=== PATIENT | male | born 1945 | race Caucasian/White ===

== ENCOUNTER → 2016-07-14 | Outpatient (CLI) | payer MEDICARE, BC ==
--- NOTE | 2016-07-14 12:58 | CT ---
EXAMINATION TYPE: CT abdomen pelvis wo/w con DATE OF EXAM: 07/14/2016 12:14 PM COMPARISON: NONE HISTORY: Renal mass left kidney CT DLP: 1517.3 mGycm Automated exposure control for dose reduction was used. TECHNIQUE: Helical acquisition of images was performed from the lung bases through the pelvis pre- a nd postadministration of intravenous contrast, following oral contrast. CONTRAST: Performed with Oral Contrast and with IV Contrast, patient injected with 75 per order mL of Visipaque 320. FINDINGS: At the root of the aorta the diameter measures approximately 4.8 cm. LUNG BASES: No significant abnormality is appreciated. LIVER/GB: Cystic focus right lobe of the liver measures 11 mm axial image 28, similar cystic focus le ft lobe measures 12 mm, additional subcentimeter cystic foci present within the right lobe axial imag e 16, left lobe shows 12 mm focus lateral segment. Gallbladder is normal. PANCREAS: No significant abnormality is seen. SPLEEN: No significant abnormality is seen. ADRENALS: No significant abnormality is seen. KIDNEYS: There is a soft tissue mass at the upper pole of the left kidney measuring approximately 3 c m x 3.5 cm x 2.7 cm which shows heterogeneous enhancement. Cystic focus is present at the medial righ t renal cortex measuring 2.3 cm. The lower pole medially there is an indeterminate mixed low dense fo cus measuring approximately 14 mm which may be due to volume averaging. RETROPERITONEAL ADENOPATHY: None visualized REPRODUCTIVE ORGANS: Prostate is enlarged and shows some associated calcification. URINARY BLADDER: Suspect a small Hutch diverticulum on the left.. PELVIC ADENOPATHY: None visualized. OSSEOUS STRUCTURES: There is a scoliosis. Degenerative disc changes, facet arthropathy noted at the lower lumbar spine. Osteoarthritic changes noted within the hips. BOWEL: Extensive diverticular changes associated with the sigmoid colon. OTHER: No ascites. IMPRESSION: UPPER POLE LEFT RENAL MASS COULD REPRESENT RENAL CELL CARCINOMA. POSSIBLE VOLUME AVERAGING LOWER POLE LEFT KIDNEY RATHER THAN TRUE MASS. PROBABLE CYSTS WITHIN THE LIVER. DIVERTICULOSIS. SCOLIOSIS, DEGEN ERATIVE DISC DISEASE, FACET ARTHROPATHY.
== END | disposition home or self-care (01) ==
LOC: RADCTMAIN 09:56
PROVIDERS: ATTEND Urology
DX: N28.89 Other specified disorders of kidney and ureter (principal); K57.30 Diverticulosis of large intestine without perforation or abscess without bleeding
CPT/HCPCS: 74178; Q9967

== ENCOUNTER → 2016-07-30 | Outpatient (CLI) | payer MEDICARE, BC ==
[2016-07-30 10:13] LABS: Appearance,Urine Clear (Clear); Bilirubin,Urine Negative (Negative); Glucose,Urine (UA) Negative (Negative); Ketones,Urine Negative (Negative); Leukocyte Esterase,Urine Negative (Negative); Nitrite,Urine Negative (Negative); Protein,Urine Negative (Negative); UA Billing (MACRO vs. MICRO) CHEM; Urobilinogen,Urine <2.0 mg/dL (<2.0)
[2016-07-30 10:14] LABS: Basophils % (A) 1 %; CH 30.7; CHCM 33.3; Eosinophils # (A) 0.1 k/uL (0-0.7); Eosinophils % (A) 3 %; HCT 42.2 % (39.0-53.0); HDW 2.52; HGB 14.1 gm/dL (13.0-17.5); Luc # (Auto) 0.23; Luc % (Auto) 4; Lymphocytes # (A) 0.9 k/uL (1.0-4.8); Lymphocytes % (A) 17 %; MCHC 33.5 g/dL (31.0-37.0); MCV 92.7 fL (80.0-100.0); Monocytes # (A) 0.6 k/uL (0-1.0); Monocytes % (A) 10 %; Neutrophils # (A) 3.7 k/uL (1.3-7.7); Neutrophils % (A) 66 %; RBC 4.55 m/uL (4.30-5.90); RDW 13.4 % (11.5-15.5); WBC 5.6 k/uL (3.8-10.6); WBC (Perox) 5.77
--- NOTE | 2016-07-30 10:22 | XR ---
EXAMINATION TYPE: XR chest 2V DATE OF EXAM: 07/30/2016 10:15 AM COMPARISON: None TECHNIQUE: PA and lateral views submitted. HISTORY: Arrhythmia and shortness of breath FINDINGS: The lungs are clear and there is no pneumothorax, pleural effusion, or focal pneumonia. Hypertrophi c and degenerative change of the spine noted. IMPRESSION: 1. No acute process.
[2016-07-30 10:26] LABS: ALT 31 U/L (21-72); AST 21 U/L (17-59); Alkaline Phosphatase 67 U/L (38-126); Anion Gap 13 mmol/L; Blood Urea Nitrogen 33 mg/dL (9-20); Carbon Dioxide 27 mmol/L (22-30); Chloride 103 mmol/L (98-107); Glucose 74 mg/dL (74-99); Non-African American GFR(MDRD) 50 (>60 ml/min/1.73 sqM); Potassium 4.9 mmol/L (3.5-5.1); Sodium 143 mmol/L (137-145); Total Bilirubin 0.5 mg/dL (0.2-1.3); Total Protein 7.3 g/dL (6.3-8.2)
== END | disposition home or self-care (01) ==
LOC: LABPAT 09:33
PROVIDERS: ATTEND Urology
DX: Z01.818 Encounter for other preprocedural examination (principal); Z01.810 Encounter for preprocedural cardiovascular examination; C64.2 Malignant neoplasm of left kidney, except renal pelvis; E78.5 Hyperlipidemia, unspecified; I49.9 Cardiac arrhythmia, unspecified; R35.0 Frequency of micturition; R06.02 Shortness of breath
CPT/HCPCS: 36415; 71020; 80053; 81003; 85025; 86850; 86900; 86901; 93005

== ENCOUNTER 2016-08-06 05:54 | Inpatient (IN) | payer MEDICARE, BC ==
[2016-07-31 10:28] VITALS: BMI 27.2
[~2016-08-06 05:54] MED LIST: DEXAMETHASONE SOD PHOSPHATE 10 MG/ML 1 ML VIAL IV ONE; HYDROmorphone 1 MG/ML 1 ML SYRINGE IVP PRN; MIDAZOLAM 2 MG/2 ML VIAL IV PRN; ONDANSETRON 4 MG/2 ML VIAL IVP ONE; Pre Op ABX Message 1 EACH MISC MISCELLANE ONE
[2016-08-06] MEDS ORDERED: LIDOCAINE 1% 20 ML VIAL (10MG/ML) FOR IV START INTRADERMA ONE (06:45)
[2016-08-06] MEDS: fentaNYL (PF) 50 MCG/ML 2 ML AMP IV ONE ×2 (07:00→10:48)
[2016-08-06] MEDS: LACTATED RINGERS 1,000 ML IV SCH (07:37)
[2016-08-06] MEDS ORDERED: MIDAZOLAM 2 MG/2 ML VIAL ONE (07:39)
[2016-08-06] MEDS ORDERED: VECURONIUM 10 MG VIAL IV ONE (07:39)
[2016-08-06] MEDS ORDERED: SUCCINYLCHOLINE CHLORIDE 100 MG/5 ML SYR IV ONE (07:39)
[2016-08-06] MEDS ORDERED: PHENYLEPHRINE-0.9% NACL SYG 1 MG/10 ML SYRINGE ONE (07:39)
[2016-08-06] MEDS ORDERED: NEOSTIGMINE 1 MG/ML 10 ML VIAL ONE (07:39)
[2016-08-06] MEDS ORDERED: ALBUMIN HUMAN 5% 250 ML BOTTLE IVPB ONE (07:39)
[2016-08-06] MEDS ORDERED: GLYCOPYRROLATE 0.2 MG/ML 2 ML VIAL ONE (07:39)
[2016-08-06] MEDS ORDERED: METHOHEXITAL SODIUM 500 MG VIAL ONE (07:39)
[2016-08-06] MEDS ORDERED: fentaNYL (PF) 50 MCG/ML 2 ML AMP ONE (07:39)
[2016-08-06] MEDS ORDERED: ePHEDrine 50 MG/ML 1 ML AMP ONE (07:39)
[2016-08-06] MEDS ORDERED: NALOXONE 0.4 MG/ML 1 ML VIAL IV PRN (07:58)
[2016-08-06] MEDS ORDERED: diphenhydrAMINE 50 MG/ML 1 ML VIAL IVP PRN (07:58)
[2016-08-06] MEDS ORDERED: LACTATED RINGERS 1,000 ML IV ONE ×3 (08:12→10:10)
[2016-08-06] MEDS ORDERED: GELATIN SPONGE,ABSORB (LARGE) 1 EACH SPONGE TOPICAL ONE (09:31)
[2016-08-06 10:04] LABS: CH 30.9; HCT 26.7 % (39.0-53.0); HDW 2.53; MCH 31.6 pg (25.0-35.0); MCHC 34.6 g/dL (31.0-37.0); MCV 91.3 fL (80.0-100.0); Mean Platelet Volume 8.1; RBC 2.92 m/uL (4.30-5.90); RDW 13.5 % (11.5-15.5); WBC 9.5 k/uL (3.8-10.6)
[2016-08-06 10:07] LABS: HGB 9.2 gm/dL (13.0-17.5)
[2016-08-06] MEDS ORDERED: fentaNYL (PF) 50 MCG/ML 2 ML AMP IV ONE (10:42)
[2016-08-06] MEDS ORDERED: ONDANSETRON 4 MG/2 ML VIAL IVP ONE (10:43)
[2016-08-06] MEDS ORDERED: PHENYLEPHRINE 40 MG in SODIUM CHLORIDE 0.9% 250 ML IV SCH (10:45)
[2016-08-06] MEDS ORDERED: PHYSOSTIGMINE SALICYLATE 1 MG/ML 2 ML AMP IVP ONE (10:50)
[2016-08-06] MEDS: BUPIVACAINE (PF) 0.5% 50 ML, HYDROmorphone 5 MG in SODIUM CHLORIDE 0.9% 198 ML EPIDURAL PRN (10:55)
[2016-08-06 11:29] LABS: CH 30.6; HCT 26.2 % (39.0-53.0); HDW 2.49; HGB 8.8 gm/dL (13.0-17.5); MCH 31.5 pg (25.0-35.0); MCHC 33.7 g/dL (31.0-37.0); MCV 93.4 fL (80.0-100.0); RDW 13.4 % (11.5-15.5); WBC 9.7 k/uL (3.8-10.6)
[2016-08-06] MEDS ORDERED: SODIUM CHLORIDE 0.9% 1,000 ML IV ONE ×2 (12:40→13:17)
[2016-08-06] MEDS ORDERED: ACETAMINOPHEN TAB 325 MG TAB PO PRN (13:05)
[2016-08-06 14:33] LABS: Basophils % (A) 0 %; CH 30.9; CHCM 32.4; Eosinophils % (A) 0 %; HDW 2.57; HGB 10.5 gm/dL (13.0-17.5); Luc # (Auto) 0.11; Luc % (Auto) 1; Lymphocytes # (A) 0.4 k/uL (1.0-4.8); Lymphocytes % (A) 4 %; MCH 31.4 pg (25.0-35.0); MCHC 32.8 g/dL (31.0-37.0); MCV 95.9 fL (80.0-100.0); Mean Platelet Volume 7.7; Monocytes # (A) 0.3 k/uL (0-1.0); Monocytes % (A) 4 %; Neutrophils # (A) 7.4 k/uL (1.3-7.7); Neutrophils % (A) 90 %; RBC 3.34 m/uL (4.30-5.90); RDW 13.5 % (11.5-15.5); WBC 8.3 k/uL (3.8-10.6); WBC (Perox) 9.31
[2016-08-06] MEDS: ONDANSETRON 4 MG/2 ML VIAL IVP PRN (16:05)
[2016-08-06] MEDS: DEXTROSE 5%-0.45% NACL 1,000 ML IV SCH (20:28)
[2016-08-06] MEDS: LISINOPRIL 10 MG TAB PO SCH (20:28)
[2016-08-06] MEDS: NIFEdipine XL 30 MG TAB.ER.24 PO SCH (20:28)
[2016-08-06] MEDS: METOPROLOL TARTRATE 12.5 MG TAB PO SCH (20:28)
[2016-08-07] MEDS: DEXTROSE 5%-0.45% NACL 1,000 ML IV SCH ×4 (04:09→23:25)
--- NOTE | 2016-08-07 06:53 | P.PN ---
Subjective The patient is in his first day postop left partial nephrectomy. He feels well. His urine output is good. His vital signs are stable. He is ambulating. He is taking a limited fluid diet. His AUGUSTA drainage is minimal. Labs will be obtained. We'll continue with supportive care. The epidural is controlling his pain. Objective - Vital Signs Vital signs: Vital Signs Temp 98.4 F 08/07/16 01:30 Pulse 107 H 08/07/16 01:30 Resp 16 08/07/16 01:30 BP 98/52 08/07/16 01:30 Pulse Ox 92 L 08/07/16 01:30 Intake & Output 08/06/16 08/06/16 08/07/16 06:59 18:59 06:59 Intake Total 4380.5 680 Output Total 1810 980 Balance 2570.5 -300 Intake: IV 4070.5 Oral 680 Blood Product 310 Rc As-1 Unit 310 [id number] Output: Drainage 10 Left Lateral Back 10 Urine 600 980 Estimated Blood Loss 1200 Other: Voiding Method Indwelling Catheter Indwelling Catheter - Labs CBC & Chem 7: 08/06/16 14:20 Labs: Abnormal Lab Results - Last 24 Hours (Table) 07/30/16 08/06/16 08/06/16 Range/Units 09:38 09:56 11:16 RBC 2.92 L 2.80 L (4.30-5.90) m/uL Hgb 9.2 L D 8.8 L (13.0-17.5) gm/dL Hct 26.7 L 26.2 L (39.0-53.0) % Plt Count 125 L (150-450) k/uL Lymphocytes # (1.0-4.8) k/uL Crossmatch See Detail 08/06/16 Range/Units 14:20 RBC 3.34 L (4.30-5.90) m/uL Hgb 10.5 L (13.0-17.5) gm/dL Hct 32.0 L (39.0-53.0) % Plt Count 149 L (150-450) k/uL Lymphocytes # 0.4 L (1.0-4.8) k/uL Crossmatch
[2016-08-07 07:07] LABS: CH 31.3; CHCM 34.2; HCT 28.2 % (39.0-53.0); HDW 2.73; HGB 9.5 gm/dL (13.0-17.5); MCH 31.1 pg (25.0-35.0); MCHC 33.8 g/dL (31.0-37.0); MCV 92.1 fL (80.0-100.0); Mean Platelet Volume 7.4; RBC 3.06 m/uL (4.30-5.90); RDW 13.8 % (11.5-15.5)
[2016-08-07 07:58] LABS: Calcium 8.3 mg/dL (8.4-10.2); Potassium 4.5 mmol/L (3.5-5.1)
[2016-08-07] MEDS: NIFEdipine XL 30 MG TAB.ER.24 PO SCH ×2 (08:52→22:04)
[2016-08-07] MEDS: METOPROLOL TARTRATE 12.5 MG TAB PO SCH ×2 (08:52→21:22)
[2016-08-07] MEDS: LACTATED RINGERS 1,000 ML IV SCH (08:53)
[2016-08-07] MEDS: LISINOPRIL 10 MG TAB PO SCH ×2 (08:54→21:22)
[2016-08-07] MEDS: TRIAMTERENE-HCTZ 37.5-25MG 1 EACH CAP PO SCH (08:54)
--- NOTE | 2016-08-07 11:11 | P.PN ---
Progress Note - Text 0723 Anesthesia POD 1. Status Post left partial nephrectomy under general endotracheal anesthesia with an epidrual catheter placed at T11 for post surgical pain releif. VAS (0, 3) with Bupivicaine 0.1 % and Dilaudid 20 mcg / cc running at 4 cc / hr. Lower extremity strength (4/4). No sedation. Site looks OK.
--- NOTE | 2016-08-07 12:23 | CDI ---
In responding to this query, please exercise your independent professional judgment. The [facility] Coding Staff and Clinical Documentation Specialists appreciate your assistance in clarifying documentation, maintaining compliance with coding guidelines, accurately documenting patients condition and capturing severity of illness. The fact that a question is asked does not imply that any particular answer is desired or expected. Communication forms are a method of clarifying documentation and are not made part of the Legal Health Record. Thank you in advance for your clarification. Last Revision, April 2015 Tatiana Mcintyre [address] [facility] [place] [address] Documentation Clarification Form Date: 08/07/2016 12:17:00 PM From: Marifer Hankins Admit Date: 08/06/2016 5:54:00 AM Patient Name: Elier Goff Visit Number: [id number] Dr. Randell Ricks/Dr Soriano History/Risk Factors: Left Renal Cell Cancer Postop Left Partial Nephrectomy Clinical Indicators: Labs on 08/07: BUN 35, CR 1.71, GFR 40 Treatment: IV fluids @125 cc/hr In order to capture the severity of condition, please clarify if the condition signifies: Acute renal failure Acute on chronic renal failure Chronic kidney disease (CKD) and please stage Stage 3 GFR 30-59 Other Stage (please specify) Expected Outcome of Surgery Unable to determine Other (please specify) Please document in your progress notes and discharge summary in order to capture severity of illness and risk of mortality. Include clinical findings that support your diagnosis. FYI: Press F11 to launch patient chart. Place X here if this finding has no clinical significance, is not applicable or if you are not able to provide any additional documentation. LIU
[2016-08-07] MEDS: ONDANSETRON 4 MG/2 ML VIAL IVP PRN ×2 (13:57→19:18)
[2016-08-07] MEDS: BUPIVACAINE (PF) 0.5% 50 ML, HYDROmorphone 5 MG in SODIUM CHLORIDE 0.9% 198 ML EPIDURAL PRN (16:38)
[2016-08-07] MEDS: NALBUPHINE 10 MG/ML AMPUL IV PRN (17:13)
[2016-08-07 19:54] LABS: CH 30.9; CHCM 32.3; HDW 2.58; HGB 9.9 gm/dL (13.0-17.5); MCH 30.8 pg (25.0-35.0); MCV 96.2 fL (80.0-100.0); Mean Platelet Volume 7.2; RBC 3.22 m/uL (4.30-5.90); RDW 13.6 % (11.5-15.5); WBC 11.3 k/uL (3.8-10.6); WBC (Perox) 12.45
[2016-08-07 20:44] LABS: Add Differential Manual Differential
[2016-08-07 20:46] LABS: Nucleated Red Blood Cells 0 /100 WBC (0-0); Total Cells Counted 100
[2016-08-07 20:47] LABS: Manual Review Performed; Ovalocytes Present
[2016-08-07] MEDS: MELATONIN 5 MG TABLET PO SCH (21:22)
[2016-08-08] MEDS: ACETAMINOPHEN TAB 325 MG TAB PO PRN (05:07)
[2016-08-08] MEDS: DEXTROSE 5%-0.45% NACL 1,000 ML IV SCH ×3 (05:08→18:18)
[2016-08-08] MEDS ORDERED: BISACODYL 10 MG SUPP RECTAL STA (07:36)
[2016-08-08] MEDS ORDERED: diphenhydrAMINE 50 MG CAP PO STA (07:37)
--- NOTE | 2016-08-08 07:53 | P.PN ---
Progress Note - Text The patient is 2 days post partial left nephrectomy. He is afebrile and normotensive. He has had periodic episodes of sweating and nausea. It is possible that the nausea is related to the Dilaudid in his epidural catheter. The cause of the sweating has not been clear but one possibility is a delayed transfusion reaction. The patient says that he is comfortable if he is lying in bed but does have left upper quadrant pain when he tries to move around. He denies any shortness of breath. He has not passed any flatus since surgery. He denies any shortness of breath or cough. Physical exam: Chest-clear bilaterally cardiac-regular rhythm-no murmur. Abdomen-no focal tenderness. Incision is healing well. No bowel sounds are present. Minimal drainage from Geoffrey-Sands. Labs-hemoglobin is stable at 9.9. White blood count is 11,300. Impression: Satisfactory recovery 2 days post partial nephrectomy. We will talk with anesthesia and see if a different medication combination can be used for the patient's epidural as it may be that the Dilaudid is causing some nausea. Patient will be given Benadryl and Tylenol due to the possible transfusion reaction.
[2016-08-08] MEDS: METOPROLOL TARTRATE 12.5 MG TAB PO SCH ×2 (08:57→21:58)
[2016-08-08] MEDS: MELOXICAM 7.5 MG TAB PO SCH (08:57)
[2016-08-08] MEDS: LISINOPRIL 10 MG TAB PO SCH ×2 (08:57→21:58)
[2016-08-08] MEDS: NIFEdipine XL 30 MG TAB.ER.24 PO SCH ×2 (08:58→21:58)
[2016-08-08] MEDS: TRIAMTERENE-HCTZ 37.5-25MG 1 EACH CAP PO SCH (08:58)
[2016-08-08] MEDS ORDERED: MELOXICAM 7.5 MG TAB PO SCH (09:00)
[2016-08-08] MEDS ORDERED: NON-FORMULARY DRUG (Celecoxib 200 MG) PO SCH (09:00)
[2016-08-08] MEDS ORDERED: HYDROmorphone 1 MG/ML 1 ML SYRINGE IVP PRN (13:36)
[2016-08-08] MEDS: HYDROmorphone 1 MG/ML 1 ML SYRINGE IVP PRN ×2 (13:53→20:37)
[2016-08-08] MEDS: NALBUPHINE 10 MG/ML AMPUL IV PRN (13:58)
[2016-08-08] MEDS ORDERED: KETOROLAC 30 MG/ML 1 ML VIAL IVP STA (14:40)
[2016-08-08 14:48] LABS: Glucose,Whole Blood 137 mg/dL (75-99)
[2016-08-08 15:10] LABS: Basophils % (A) 0 %; CH 31.2; CHCM 33.7; Eosinophils % (A) 0 %; HCT 28.4 % (39.0-53.0); HDW 2.48; HGB 9.4 gm/dL (13.0-17.5); Luc % (Auto) 2; Lymphocytes # (A) 0.6 k/uL (1.0-4.8); Lymphocytes % (A) 4 %; MCH 30.8 pg (25.0-35.0); MCHC 33.1 g/dL (31.0-37.0); Mean Platelet Volume 7.4; Monocytes % (A) 8 %; Neutrophils % (A) 86 %; RBC 3.05 m/uL (4.30-5.90); RDW 13.4 % (11.5-15.5); WBC 12.9 k/uL (3.8-10.6); WBC (Perox) 13.76
[2016-08-08 15:23] LABS: Calcium 8.4 mg/dL (8.4-10.2); Potassium 4.8 mmol/L (3.5-5.1); Total Bilirubin 1.5 mg/dL (0.2-1.3); Total Protein 5.5 g/dL (6.3-8.2)
[2016-08-08 15:55] LABS: Appearance,Urine Cloudy (Clear); Bacteria,Urine Few /hpf; Bilirubin,Urine Negative (Negative); Glucose,Urine (UA) Negative (Negative); Granular Casts,Urine 5 /lpf (0); Ketones,Urine Negative (Negative); Leukocyte Esterase,Urine Moderate (Negative); Nitrite,Urine Negative (Negative); Particle Count 30733; Protein,Urine 1+ (Negative); RBC,Urine >182 /hpf (0-5); Specific Gravity,Urine 1.011 (1.001-1.035); UA Billing (MACRO vs. MICRO) MICRO; Urobilinogen,Urine <2.0 mg/dL (<2.0); WBC,Urine 55 /hpf (0-5)
--- NOTE | 2016-08-08 20:37 | P.PN ---
Progress Note - Text Date: 08/08/2016 Time: 1550 The patient is status post, left partial nephrectomy, postoperative day number 2. The patient does not complain of any lower extremity numbness or weakness. The epidural is running at[4] mL per hour. The patient has exhibited some nausea and mild fever the past day. The patient's pain is not adequately controlled at this time. It is somewhat difficult to ascertain because the patient does have underlying chronic back pain. Epidural therefore was discontinued, the patient's pain medications will be provided to him by the service. Dr. López was notified.
--- NOTE | 2016-08-08 21:41 | XR ---
EXAMINATION TYPE: XR chest 2V DATE OF EXAM: 08/08/2016 9:29 PM COMPARISON: 07/30/2016 HISTORY: Hypoxemia TECHNIQUE: Frontal and lateral views of the chest are obtained. FINDINGS: There is linear density at the lung bases consistent with atelectasis. There is no heart f ailure. There is a poor inspiration. There is no definite pleural effusion. There are no hilar masses . Mediastinum is normal. IMPRESSION: There is new bilateral lower lobe atelectasis compared to old exam. No heart failure.
[2016-08-08] MEDS: MELATONIN 5 MG TABLET PO SCH (21:58)
[2016-08-09] MEDS: HYDROmorphone 1 MG/ML 1 ML SYRINGE IVP PRN ×5 (00:15→11:52)
[2016-08-09] MEDS: ACETAMINOPHEN TAB 325 MG TAB PO PRN ×2 (02:29→05:38)
[2016-08-09] MEDS: DEXTROSE 5%-0.45% NACL 1,000 ML IV SCH ×4 (03:02→20:59)
[2016-08-09] MEDS: ONDANSETRON 4 MG/2 ML VIAL IVP PRN ×2 (03:33→22:40)
[2016-08-09 03:45] LABS: Basophils % (A) 0 %; CH 31.2; Eosinophils % (A) 0 %; HCT 24.8 % (39.0-53.0); HGB 8.4 gm/dL (13.0-17.5); Luc # (Auto) 0.23; Luc % (Auto) 2; Lymphocytes # (A) 0.6 k/uL (1.0-4.8); Lymphocytes % (A) 6 %; MCH 31.1 pg (25.0-35.0); MCHC 33.7 g/dL (31.0-37.0); MCV 92.3 fL (80.0-100.0); Mean Platelet Volume 7.8; Monocytes # (A) 0.6 k/uL (0-1.0); Monocytes % (A) 6 %; Neutrophils # (A) 8.6 k/uL (1.3-7.7); Neutrophils % (A) 86 %; RBC 2.69 m/uL (4.30-5.90); RDW 13.5 % (11.5-15.5); WBC (Perox) 10.37
[2016-08-09 03:54] LABS: Calcium 8.1 mg/dL (8.4-10.2); Potassium 4.6 mmol/L (3.5-5.1)
[2016-08-09] MEDS: LEVOFLOXACIN 500MG-D5W PMX 500 MG in DEXTROSE/WATER 1 100ML.BAG IVPB SCH (04:46)
[2016-08-09] MEDS: METOPROLOL TARTRATE 12.5 MG TAB PO SCH (08:10)
[2016-08-09] MEDS: NIFEdipine XL 30 MG TAB.ER.24 PO SCH ×2 (08:10→20:28)
[2016-08-09] MEDS: MELOXICAM 7.5 MG TAB PO SCH (08:10)
[2016-08-09] MEDS: TRIAMTERENE-HCTZ 37.5-25MG 1 EACH CAP PO SCH (08:11)
[2016-08-09] MEDS ORDERED: BISACODYL 10 MG SUPP RECTAL STA (08:55)
--- NOTE | 2016-08-09 09:04 | P.PN ---
Progress Note - Text The patient is 3 days post partial left nephrectomy. He had a temperature of 102.3 last night but is currently afebrile. Chest x-ray last night showed evidence of bilateral basilar atelectasis. The patient has blood cultures done and was placed on Levaquin at that time. He denies any cough or shortness of breath. He continues to have a moderate amount of left upper quadrant pain with movement. He has been tolerating liquids but has not had a bowel movement yet. He denies any leg pains. Physical exam: Chest-basilar crackles-left greater than right. Cardiac: Regular rhythm-no murmur. Abdomen: Incision is healing well and is uninflamed. Good bowel sounds are present. No focal tenderness. Minimal drainage from AUGUSTA. Extremities-no edema or Leg tenderness. Labs: BUN 21/creatinine 1.80-stable blood count is slightly less at 10,000. Hemoglobin is 8.4. Sodium is 129. Impression: Postoperative fever-most likely related to atelectasis. Transient increase in creatinine from baseline of 1.31-most likely related to temporary clamping of renal artery at time of surgery. Anemia secondary to acute blood loss during surgery Plan: Patient's Hinojosa catheter will be removed and an attempt will be made to increase his ambulation which should aid in helping him to use his atelectasis. His hemoglobin will be rechecked this afternoon.
[2016-08-09] MEDS: LISINOPRIL 10 MG TAB PO SCH ×2 (10:16→20:28)
[2016-08-09 14:01] LABS: CH 31.2; CHCM 33.3; HCT 25.5 % (39.0-53.0); HDW 2.55; HGB 8.5 gm/dL (13.0-17.5); MCH 31.4 pg (25.0-35.0); MCHC 33.2 g/dL (31.0-37.0); MCV 94.5 fL (80.0-100.0); RDW 13.5 % (11.5-15.5); WBC 11.4 k/uL (3.8-10.6)
[2016-08-09 16:50] LABS: Magnesium 1.9 mg/dL (1.6-2.3)
[2016-08-09] MEDS ORDERED: MORPHINE PCA 30 MG/30 ML SYRINGE IV PRN (16:53)
[2016-08-09] MEDS ORDERED: NALOXONE 0.4 MG/ML 1 ML VIAL IV PRN (16:53)
[2016-08-09] MEDS: MELATONIN 5 MG TABLET PO SCH (20:28)
[2016-08-09] MEDS: Acetaminophen-Codeine 300-30mg TAB PO PRN (22:12)
[2016-08-09] MEDS ORDERED: ALPRAZolam 0.25 MG TAB PO STA (22:33)
[2016-08-10 01:20] LABS: Glucose,Whole Blood 169 mg/dL (75-99)
[2016-08-10] MEDS: Acetaminophen-Codeine 300-30mg TAB PO PRN ×3 (01:37→09:36)
[2016-08-10] MEDS: LEVOFLOXACIN 500MG-D5W PMX 500 MG in DEXTROSE/WATER 1 100ML.BAG IVPB SCH (04:31)
[2016-08-10] MEDS: DEXTROSE 5%-0.45% NACL 1,000 ML IV SCH ×2 (04:33→21:58)
[2016-08-10] MEDS: ONDANSETRON 4 MG/2 ML VIAL IVP PRN (05:17)
[2016-08-10] MEDS: MELOXICAM 7.5 MG TAB PO SCH (08:49)
[2016-08-10] MEDS: NIFEdipine XL 30 MG TAB.ER.24 PO SCH ×2 (08:49→21:58)
[2016-08-10] MEDS: TRIAMTERENE-HCTZ 37.5-25MG 1 EACH CAP PO SCH (08:49)
[2016-08-10] MEDS: LISINOPRIL 10 MG TAB PO SCH ×2 (08:49→21:59)
[2016-08-10] MEDS ORDERED: TAMSULOSIN 0.4 MG CAP.ER.24H PO STA (10:21)
--- NOTE | 2016-08-10 10:21 | P.PN ---
Progress Note - Text The patient is afebrile. Blood pressure this morning was 126/64. The patient has no shortness of breath or cough. He is tolerating a full liquid diet and had him toast this morning. He says he had 2 bowel movements yesterday evening. He continues to have left upper quadrant pain with movement but this has decreased and the patient is ambulatory. The patient was unable to void when his catheter was removed yesterday and it was replaced. Physical exam: Chest-clear bilaterally. Cardiac-regular rhythm-no murmur. Abdomen-soft. Incision is uninflamed. Bowel sounds are normal. Minimal AUGUSTA drainage. Urine culture has grown group D enterococcus. Impression: Patient is improved overall. I believe his fever was most likely related to atelectasis although the patient also had an enterococcus UTI. He will be switched from Levaquin to amoxicillin. His diet and activity will be increased. The patient will be started on tamsulosin and will be given another voiding trial.
[2016-08-10] MEDS ORDERED: ACETAMINOPHEN TAB 325 MG TAB PO PRN (10:22)
[2016-08-10] MEDS ORDERED: Acetaminophen-Codeine 300-30mg TAB PO PRN (10:26)
[2016-08-10] MEDS: AMOXICILLIN 500 MG CAP PO SCH ×2 (10:50→21:59)
[2016-08-10 10:54] LABS: CH 31.2; CHCM 34.4; HCT 26.6 % (39.0-53.0); HGB 9.4 gm/dL (13.0-17.5); MCH 32.2 pg (25.0-35.0); MCHC 35.3 g/dL (31.0-37.0); MCV 91.1 fL (80.0-100.0); RBC 2.92 m/uL (4.30-5.90); RDW 13.6 % (11.5-15.5); WBC 9.8 k/uL (3.8-10.6)
[2016-08-10 11:05] LABS: Calcium 8.5 mg/dL (8.4-10.2); Potassium 3.9 mmol/L (3.5-5.1)
[2016-08-10] MEDS: ACETAMINOPHEN IV (For NPO) 1,000 MG in EMPTY BAG 1 BAG IVPB SCH ×3 (12:00→17:05)
[2016-08-10] MEDS: MELATONIN 5 MG TABLET PO SCH (21:58)
[2016-08-10] MEDS ORDERED: ALPRAZolam 0.25 MG TAB PO SCH (22:00)
[2016-08-11] MEDS: AMOXICILLIN 500 MG CAP PO SCH ×2 (01:07→08:17)
[2016-08-11] MEDS: ACETAMINOPHEN IV (For NPO) 1,000 MG in EMPTY BAG 1 BAG IVPB SCH ×2 (01:08→06:17)
[2016-08-11 02:32] VITALS: RESP 16
[2016-08-11 07:42] LABS: Calcium 9.1 mg/dL (8.4-10.2); Potassium 4.2 mmol/L (3.5-5.1)
--- NOTE | 2016-08-11 07:51 | P.PN ---
Progress Note - Text The patient is afebrile and normotensive. His pain has been tolerable with IV acetaminophen. Patient has been tried on Tylenol No. 3 but developed itching which may be related to the narcotics. He is tolerating a diet and is drinking large amounts of water. His catheter was removed yesterday and he has been voiding without difficulty. White blood count yesterday was 9800. BUN/creatinine was improved at 16/1.5. Physical exam: Abdomen-soft. Incision is uninflamed. Minimal drainage from Geoffrey-Sands drain. Impression: Good recovery following left partial nephrectomy. Plan: The patient will be switched to oral acetaminophen and if he remains comfortable he will be discharged and will be seen back in the office in 3 or 4 days at which time his skin marlin and drain will be removed area
[2016-08-11] MEDS: MELOXICAM 7.5 MG TAB PO SCH (08:17)
[2016-08-11 08:41] VITALS: TEMP 97.2
[2016-08-11] MEDS ORDERED: ACETAMINOPHEN TAB 325 MG TAB PO PRN (09:45)
[2016-08-11] MEDS ORDERED: ALPRAZolam 0.25 MG TAB PO PRN (10:03)
[2016-08-11 10:05] VITALS: BP 130/61
[2016-08-11] MEDS: LISINOPRIL 10 MG TAB PO SCH (10:07)
[2016-08-11] MEDS: NIFEdipine XL 30 MG TAB.ER.24 PO SCH (10:07)
[2016-08-11 10:17] VITALS: PULSE 70
[2016-08-11] MEDS: DEXTROSE 5%-0.45% NACL 1,000 ML IV SCH (10:36)
[2016-08-11] MEDS: TRIAMTERENE-HCTZ 37.5-25MG 1 EACH CAP PO SCH (11:15)
[2016-08-11] MEDS ORDERED: ALPRAZolam 0.25 MG TAB PO SCH (21:00)
--- NOTE | 2016-08-29 11:57 | P.OP ---
Date of Procedure: 08/06/16 Postoperative Diagnosis: Left renal mass Procedure(s) Performed: Same Anesthesia: GETA, epidural Surgeon: Randell Ricks Shop Director #1: Gage Soriano Estimated Blood Loss (ml): 1,100 Pathology: other (Left renal mass) Condition: stable Disposition: PACU Indications for Procedure: The patient is a 70-year-old gentleman who had a coincidentally identified left upper pole 3 cm cortical mass. The mass is quite worrisome for malignancy. He comes for a left partial possible left left nephrectomy risks and complications of an outlined Description of Procedure: The patient is brought to the operating suite and given a successful general endotracheal anesthesia as well as epidural anesthesia. He is prepped and draped sterilely. A Hinojosa catheters introduced sterilely. A left subcostal incision is made. The peritoneum was opened. The liver is inspected to be normal. The colon is incised and pulled medially. His identified. We we free up the kidney laterally. We move retraction so that we can follow the blood vessels and identify the left renal vein and left renal artery. Ties were placed around each for security. We moved superiorly and identify the left adrenal vein and protected. We detached the adrenal gland from drug's. We opened Gerota's and come down on the kidney and identify the mass. Freed up the kidney such that we can mobilize the kidney so that the mass can be identified and removed. We placed a bulldog clamp on the left renal artery. We then excised the mass out of the upper pole the kidney. The blood loss is acute and moderate. We will control the bleeding with compression of the kidney and the bulldog clamp. We then oversew the blood vessels with 2 and 4-[address] some Gelfoam in the kidney. We then mattress stitch the parenchyma so that the gap in the upper pole the kidney is closed. We've released the bulldog clamp to make sure the ischemia is minimal. The ischemic time is only about 6 or 7 minutes. Kidney is stopped bleeding. Watch for about 10-15 minutes to make sure there is no bleeding. We placed the kidney back in the retroperitoneum. We placed a Geoffrey-Sands drain around the kidney. gerotas fascia is allowed to of close over the kidney. The colon was placed over the kidney. Closed in 3 layers of Vicryl, #1. The skin is stapled. The patient's awake and returned recovery room good condition. Blood loss was 1100 mL. The patient tolerated the procedure well with replacement with crystalloid and colloid.
--- NOTE | 2016-09-03 13:20 | P.DS ---
Providers Date of admission: 08/06/16 05:54 Attending physician: Randell Ricks Primary care physician: Stated None Hospital Course: The patient underwent a successful left partial nephrectomy for a renal mass. He had an uneventful post op course. the pain was controlled with the epidural and then oral meds. His diet was advanced. The drain was removed the cath was removed andhe voided. The final path identified an angiomyolipoma He is discharged home in care of his family, regular diet and linnmited activity He will be followed up in 1 week His condition is good he will resume his home meds Patient Condition at Discharge: Good Plan - Discharge Summary New Discharge Prescriptions: ALPRAZolam [Xanax] 0.25 mg PO BID #14 tab Amoxicillin 500 mg PO Q8H #15 cap Discharge Medication List Acetaminophen Tab [Tylenol Tab] 650 mg PO Q6H PRN 07/31/16 [History] Celecoxib [CeleBREX] 200 mg PO DAILY 07/31/16 [History] Lisinopril [Zestril] 10 mg PO BID 07/31/16 [History] Metoprolol Tartrate [Lopressor] 12.5 mg PO BID 07/31/16 [History] NIFEdipine [Procardia XL] 30 mg PO BID 07/31/16 [History] Triamterene-Hctz 37.5-25Mg [Dyazide 37.5-25 Capsule] 1 cap PO DAILY 07/31/16 [ History] ALPRAZolam [Xanax] 0.25 mg PO BID #14 tab 08/11/16 [Rx] Amoxicillin 500 mg PO Q8H #15 cap 08/11/16 [Rx] Follow up Appointment(s)/Referral(s): Gage Soriano MD [STAFF PHYSICIAN] - 08/14/16 (follow up appointment 08/14/16 8 :40 am) Patient Instructions/Handouts: Nephrectomy (DC), Geoffrey-Sands Drain Care (DC) Discharge Disposition: HOME SELF-CARE
== END 2016-08-11 14:10 | disposition home or self-care (01) | DRG 982 ==
LOC: 2ORMAIN 05:54 → 3SUR 13:36
PROVIDERS: ADMIT Urology; ATTEND Urology
PROC: 30233N1 Transfusion of Nonautologous Red Blood Cells into Peripheral Vein, Percutaneous Approach (ICD-10-PCS; 2016-08-06)
PROC: 0TB10ZZ Excision of Left Kidney, Open Approach (ICD-10-PCS; principal; 2016-08-06 07:30)
DX: D17.71 Benign lipomatous neoplasm of kidney (principal); D62 Acute posthemorrhagic anemia; I48.2 Chronic atrial fibrillation; N39.0 Urinary tract infection, site not specified; J98.11 Atelectasis; B95.2 Enterococcus as the cause of diseases classified elsewhere; G89.29 Other chronic pain; E78.00 Pure hypercholesterolemia, unspecified; I10 Essential (primary) hypertension; Z88.0 Allergy status to penicillin; Z88.8 Allergy status to other drugs, medicaments and biological substances; Z96.652 Presence of left artificial knee joint; Z87.891 Personal history of nicotine dependence; Z79.1 Long term (current) use of non-steroidal anti-inflammatories (NSAID); Z79.899 Other long term (current) drug therapy
CPT/HCPCS: 71020; 80048; 80053; 81001; 83605; 83735; 85025; 85027; 86850; 86900; 86901; 86920; 87040; 87077; 87086; 87186; 88307; 88341; 88342; 93005

== ENCOUNTER → 2017-06-23 | Outpatient (CLI) | payer MEDICARE, BC ==
--- NOTE | 2017-06-23 13:31 | US ---
EXAMINATION TYPE: US kidneys/renal and bladder DATE OF EXAM: 06/23/2017 COMPARISON: CT CLINICAL HISTORY: D30.02 BENIGHN NEOPLASM OF LT KIDNEY. EXAM MEASUREMENTS: Right Kidney: 10.2 x 5.2 x 5.9 cm Left Kidney: 9.1 x 4.5 x 3.8 cm Patient states he had lesion removed from left kidney last July, which was benign. Right Kidney: No hydronephrosis or masses seen Left Kidney: echogenic area lower pole measures 1.4 x 1.2 x 1.2 cm, question lesion versus surgical c hanges. Bladder: wnl Bilateral Jets seen: Yes There is no evidence for hydronephrosis at this point in time. No nephrolithiasis is seen. The urin geraldine bladder is anechoic. Bilateral ureteral jets are seen. IMPRESSION: Probable postoperative change left kidney. This could be confirmed with CT.
== END | disposition home or self-care (01) ==
LOC: RADUSWWP 12:01
PROVIDERS: ATTEND Urology
DX: D30.02 Benign neoplasm of left kidney (principal); Z98.890 Other specified postprocedural states
CPT/HCPCS: 76770

== ENCOUNTER → 2017-12-14 | Outpatient (CLI) | payer MEDICARE, BC ==
--- NOTE | 2017-12-14 15:44 | US ---
EXAMINATION TYPE: US kidneys/renal and bladder DATE OF EXAM: 12/14/2017 COMPARISON: 06/23/2017 CLINICAL HISTORY: 72-year-old male Z90.5 Acquired absence of kidney. Partial left nephrectomy 18 ayush hs ago. TECHNIQUE: Multiple sonographic images of the kidneys and bladder are obtained. FINDINGS: EXAM MEASUREMENTS: Right Kidney: 11.1 x 6.2 x 5.1 cm Left Kidney: 9.6 x 5.0 x 3.9 cm Right Kidney: no hydronephrosis. Left Kidney: hyperechoic area inferior pole measuring 1.5 x 1.5 x 1.2 cm,? Lesion vs. Surgical change s (seen on previous ultrasound measuring 1.4 x 1.2 x 1.2 cm) Bladder: wnl Bilateral Jets seen: yes IMPRESSION: 1. No hydronephrosis. 2. Relatively similar hyperechoic lesion lower pole left kidney. This measures 15 x 15 x 12 mm versus 18 x 12 x 12 mm, previously. Continued follow-up can be performed. Given the indolent behavior, a be nign etiology is favored.
== END | disposition home or self-care (01) ==
LOC: RADUSWWP 14:02
PROVIDERS: ATTEND Internal Medicine Nephrology
DX: Z48.816 Encounter for surgical aftercare following surgery on the genitourinary system (principal); N28.9 Disorder of kidney and ureter, unspecified; Z90.5 Acquired absence of kidney
CPT/HCPCS: 76770

== ENCOUNTER → 2018-08-03 | Outpatient (CLI) | payer MEDICARE, BC ==
--- NOTE | 2018-08-03 13:01 | US ---
EXAMINATION TYPE: US kidneys/renal and bladder DATE OF EXAM: 08/03/2018 COMPARISON: 12/14/2012 CLINICAL HISTORY: 72-year-old male D30.02 Benign Neoplasm Left Kidney. Left renal lesion follow up. Hx of left renal growth with removal in 2017 per patient. TECHNIQUE: Multiple sonographic images of the kidneys and bladder are obtained. FINDINGS: EXAM MEASUREMENTS: Right Kidney: 9.7 x 5.6 x 5.7 cm Left Kidney: 8.8 x 3.4 x 4.5 cm Right Kidney: No hydronephrosis. Left Kidney: No hydronephrosis. -Lower pole echogenic lesion visualized = 1.7 x 1.1 x 1.4 cm. (Versus 15 x 15 x 12 mm, previously an 14 x 12 x 12 mm prior to that). -Poorly defined hypoechoic area visualized centrally in the mid to lower pole measures 3.4 x 2.7 x 2. 5 cm Bladder: distended, wnl Right Jet seen IMPRESSION: 1. Echogenic area in the lower pole left kidney currently measuring 17 x 14 x 11 mm (versus 15 x 15 x 12 mm and 14 x 12 x 12 mm on the patient's prior 2 exams). There are some differences in measurement technique between the studies. Continued follow-up can be performed. 2. However, there is a poorly defined hypoechoic area along the central mid to lower pole of the left kidney on the present study that may measure up to 3.4 cm. Unable to determine if this is artifactua l. Kidney CT or MRI recommended to exclude a mass.
== END | disposition home or self-care (01) ==
LOC: RADUSWWP 10:16
PROVIDERS: ATTEND Urology
DX: D30.02 Benign neoplasm of left kidney (principal); Z88.0 Allergy status to penicillin; Z88.4 Allergy status to anesthetic agent
CPT/HCPCS: 76770

== ENCOUNTER → 2018-09-01 | Outpatient (CLI) | payer MEDICARE, BC ==
--- NOTE | 2018-09-02 06:49 | US ---
EXAMINATION TYPE: US kidneys/renal and bladder DATE OF EXAM: 09/01/2018 COMPARISON: CT 2017. Most recent renal ultrasound August 03, 2018. CLINICAL HISTORY: N28.89 L RENAL MASS. follow up left renal lesion. EXAM MEASUREMENTS: Right Kidney: 10.7 x 5.6 x 5.6 cm Left Kidney: 9.0 x 4.1 x 4.3 cm Right Kidney: No hydronephrosis Left Kidney: No hydronephrosis. Lower pole echogenic lesion visualized= 1.6 x 1.3 x 1.6 cm. Poorly defined hypoechoic area visualized centrally in the mid to lower pole, lesion vs artifact =4.4 x 2.1 x 2.7 cm Bladder: distended, wnl Bilateral Jets seen Right kidney remains within normal limits. Bladder is satisfactorily distended. Bilateral distal jets are seen. Left kidney is less well visualized on images saved. No hydronephrosis is evident. Technol ogist remarks 1.6 cm hyperechoic area lower pole level and then subsequently Technologist remarks vag ue hypoechoic area lower pole level left kidney measuring 4.4 x 2.1 x 2.7 cm. A simple appearing roug hly 2.0 cm cyst centrally left kidney on CT is not clearly seen on ultrasound. Suspicious upper pole mass on CT posteriorly is not clearly identified on images saved. IMPRESSION: Similar findings to recent ultrasound, lower pole 1.6 cm hyperechoic lesion and 4.4 subcentimeter vag ue hypoechoic lesion are redemonstrated without definitive CT correlate. Advise renal protocol contra st-enhanced CT/MRI to reassess. The suspicious upper pole lesion posteriorly on CT is not clearly tyshawn ntified.
== END | disposition home or self-care (01) ==
LOC: RADUSWWP 16:04
PROVIDERS: ATTEND Urology
DX: N28.9 Disorder of kidney and ureter, unspecified (principal); Z88.0 Allergy status to penicillin; Z88.8 Allergy status to other drugs, medicaments and biological substances
CPT/HCPCS: 76770

== ENCOUNTER → 2018-09-03 | Outpatient (CLI) | payer MEDICARE, BC ==
--- NOTE | 2018-09-03 08:23 | MR ---
EXAMINATION TYPE: MR abdomen wo con DATE OF EXAM: 09/03/2018 COMPARISON: Renal ultrasound September 01, 2018 and older ultrasounds. HISTORY: Renal mass with history of partial nephrectomy 2 years ago per patient. Recent abnormal ultr asound. Standard multiplanar, multisequence MRI departmental protocol Multiplanar, multisequence images of the abdomen focusing on the kidneys were acquired. FINDINGS: Kidneys: Corresponding with recent ultrasounds and prior CT right kidney is normal in size without orellana spicious solid or cystic mass. No hydronephrosis is evident. Left kidney is asymmetrically diminished in size versus right kidney with areas of new cortical thinn ing diffusely throughout the kidney more prominent anteriorly upper to mid pole level. There is redem onstration of a thin-walled 2.1 x 1.9 cm cyst upper pole level left kidney coronal image 32 and axial image 22 anteriorly, this was present prior CT axial image 31. Uncertain why this lesion is not succ essfully visualized on ultrasound. No suspicious lesion remains present posteriorly upper pole level left kidney where there is now focal linear low signal lower scarring axial image 24. There is no ngoc picious lesions corresponding to larger vague area of hypoechoic concern on ultrasound, larger area l ikely reflects prominent central fat now identified due to its interval atrophy. Hyperechoic area low er pole level could correspond to a vague 1.2 cm slightly exophytic area of increased T1 and anterior ly isoechoic T2 signal with slight lobulation measuring roughly 1.2 x 0.9 by 1.1 cm medially lower po le level seen best coronal image 32 as well as axial image 12 on T2-weighted images and axial image 3 0 on T1-weighted images. Etiology uncertain. No corresponding lesion seen on 2017 CT. This lesion or area will need to be followed. Other: Slightly elevated left hemidiaphragm is redemonstrated. There are few simple appearing thin-wa lled cysts scattered throughout the liver. Gallbladder shows some small dependent gallstones axial im age 29. Spleen, pancreas, and both adrenal glands are normal in size. Some diverticula are seen in th e left than visualized proximal sigmoid colon. No abdominal ascites is seen. No abdominal adenopathy is noted. There is moderate multilevel spurring in the thoracic spine. IMPRESSION: Successful treatment of exophytic tumor upper pole level left kidney. New diffuse atrophy and cortical thinning left kidney more than expected for partial nephrectomy is noted. This causes i ncreased prominent central fat likely mimicking mass on last few ultrasound images saved. There is ho wever a slightly suspicious 1.2 cm area medially lower pole left kidney new from prior CT which may c orrelate with the hyperechoic area noted on ultrasound. I do favor this is benign but advise follow-u p renal protocol MRI in 6-12 months time to reassess.
== END ==
LOC: RADMRIMAIN 07:00
PROVIDERS: ATTEND Urology
DX: N26.1 Atrophy of kidney (terminal) (principal); N28.89 Other specified disorders of kidney and ureter; Z90.5 Acquired absence of kidney; Z88.0 Allergy status to penicillin; Z88.8 Allergy status to other drugs, medicaments and biological substances
CPT/HCPCS: 74181

== ENCOUNTER → 2019-07-28 | Outpatient (CLI) | payer MEDICARE, BC ==
--- NOTE | 2019-07-28 14:10 | US ---
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 Part of kidney and mass removed left kidney 2017 was benign. EXAM MEASUREMENTS: Right Kidney: 10.4 x 5.1 x 5.3 cm Left Kidney: 7.7 x 3.0 x 3.7 cm Right Kidney: wnl Left Kidney: Echogenic area lower pole 1.4 x 1.5 x 1.6 cm seen on previous exam. Bladder: wnl Bilateral Jets seen: Yes There is no evidence for hydronephrosis at this point in time. No nephrolithiasis is seen. The urin geraldine bladder is anechoic. Bilateral ureteral jets are seen. Prominent prostate visualized 5.6 cm. IMPRESSION: 1. Stable renal ultrasound
== END | disposition home or self-care (01) ==
LOC: RADUSWWP 13:19
PROVIDERS: ATTEND Urology
DX: D41.02 Neoplasm of uncertain behavior of left kidney (principal); Z88.0 Allergy status to penicillin; Z88.4 Allergy status to anesthetic agent
CPT/HCPCS: 76770

== ENCOUNTER → 2020-09-10 | Outpatient (CLI) | payer MEDICARE, BC ==
--- NOTE | 2020-09-10 14:28 | US ---
EXAMINATION TYPE: US kidneys/renal and bladder DATE OF EXAM: 09/10/2020 . COMPARISON: Renal ultrasound July 28, 2019. 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 4cm as on prior exam Bladder: diverticula noted Bilateral Jets seen: no No right-sided hydronephrosis. Right kidney normal in size. Persistent increased cortical echogenicit y and diminished size of the left kidney. Stable 2.8 cm thin-walled benign cyst upper pole left kidne y. Hyperechoic area lower pole level likely reflects prominent fat at site of cortical thinning or sc arring from partial nephrectomy. Latter is favored. IMPRESSION: No hydronephrosis seen bilaterally. No significant change from recent ultrasound.
== END | disposition home or self-care (01) ==
LOC: RADUSWWP 09:27
PROVIDERS: ATTEND Urology
DX: C64.2 Malignant neoplasm of left kidney, except renal pelvis (principal); Z88.0 Allergy status to penicillin; Z88.4 Allergy status to anesthetic agent
CPT/HCPCS: 76770

== ENCOUNTER → 2021-10-31 | Outpatient (CLI) | payer MEDICARE, BC ==
--- NOTE | 2021-11-01 11:31 | US ---
EXAMINATION TYPE: US kidneys/renal and bladder DATE OF EXAM: 10/31/2021 COMPARISON: NONE CLINICAL HISTORY: N28.1 RENAL CYST. renal cyst EXAM MEASUREMENTS: Right Kidney: 10.3 x 4.7 x 5.4 cm Left Kidney: 7.4 x 3.3 x 3.8 cm prominent prostate visualized 5.8 cm. Right Kidney: No hydronephrosis or masses seen Left Kidney: cystic area upper pole 2.2 x 3.4 x 2.0 cm. Bladder: wnl Bilateral Jets seen: Yes IMPRESSION: Left renal cyst #2 prominent prostate
== END | disposition home or self-care (01) ==
LOC: RADUSWWP 14:55
PROVIDERS: ATTEND Urology
DX: N28.1 Cyst of kidney, acquired (principal)
CPT/HCPCS: 76770